=== PATIENT | female | born 1990 | race Caucasian/White ===

== ENCOUNTER 2018-12-31 09:20 | Inpatient (IN) | payer OTHER ==
[2018-12-31] MEDS: LACTATED RINGER'S 1,000 ML IV ×3 (10:53→16:55)
[2018-12-31] MEDS ORDERED: MISOPROSTOL 200 MCG TAB PR ×2 (11:00→17:00)
[2018-12-31] MEDS ORDERED: OXYTOCIN 30 UNITS/LR 500 ML IV ×2 (11:00→17:00)
[2018-12-31] MEDS ORDERED: CARBOPROST 250 MCG INJ IM ×2 (11:00→17:00)
[2018-12-31 11:10] LABS: ADD MAN DIFF? NO
[2018-12-31 11:14] LABS: BASOPHILS % 0.3 % (0.0-2.0); EOSINOPHILS # 0.2 10^3/ul (0.0-0.5); EOSINOPHILS % 2.2 % (0.0-7.0); HEMATOCRIT 37.2 % (37.0-47.0); HEMOGLOBIN 12.2 g/dl (12.0-16.0); LYMPHOCYTES # 1.7 10^3/ul (0.8-2.9); LYMPHOCYTES % 18.3 % (15.0-51.0); MEAN CORPUSCULAR HEMOGLOBIN 30.7 pg (29.0-33.0); MEAN CORPUSCULAR HGB CONC 32.8 g/dl (32.0-37.0); MEAN CORPUSCULAR VOLUME 93.7 fl (82.0-101.0); MEAN PLATELET VOLUME 11.2 fl (7.4-10.4); MONOCYTE # 1.1 10^3/ul (0.3-0.9); MONOCYTES % 12.3 % (0.0-11.0); NEUTROPHIL # 6.2 10^3/ul (1.6-7.5); NEUTROPHILS % 66.3 % (39.0-77.0); PLATELET COUNT 269 10^3/UL (140-415); RED BLOOD COUNT 3.97 10^6/ul (4.20-5.40); RED CELL DISTRIBUTION WIDTH 13.4 % (11.5-14.5)
[2018-12-31 11:14] LABS: WHITE BLOOD COUNT 9.3 10^3/ul (4.8-10.8)
[2018-12-31 11:16] LABS: INR 0.92; PROTIME 12.5 Sec (11.9-14.9)
[2018-12-31 11:30] LABS: GLUCOSE 129 mg/dl (70-220)
[2018-12-31] MEDS ORDERED: CEFAZOLIN 1 GM INJ (15:30)
[2018-12-31] MEDS ORDERED: METHYLERGONOVINE 0.2 MG INJ (15:30)
[2018-12-31] MEDS ORDERED: FENTAnyl 50 MCG/ML VIAL (15:37)
[2018-12-31] MEDS ORDERED: morphine SULFATE/PF (10 MG/10 ML) INJ (15:37)
[2018-12-31] MEDS ORDERED: ONDANSETRON 4 MG INJ (15:48)
[2018-12-31] MEDS ORDERED: DEXAMETHASONE 4 MG/ML 1 ML INJ (15:48)
[2018-12-31] MEDS ORDERED: FAMOTIDINE 20 MG INJ (15:48)
[2018-12-31] MEDS ORDERED: MIDAZOLAM 1 MG/ML 2 ML INJ (16:06)
[2018-12-31] MEDS ORDERED: DIPHENHYDRAMINE 50 MG INJ IV (16:30)
[2018-12-31] MEDS ORDERED: ONDANSETRON 4 MG INJ IV (16:30)
[2018-12-31] MEDS ORDERED: ZOLPIDEM 5 MG TAB PO (16:30)
[2018-12-31] MEDS ORDERED: NALOXONE (0.4 MG/ML) INJ IV (16:30)
[2018-12-31] MEDS ORDERED: HYDROmorphONE 0.5 MG/0.5 ML SYG IV ×2 (16:30)
[2018-12-31 16:31] LABS: AMPHETAMINE/METHAMPHETAMINE NEGATIVE (NEGATIVE); BARBITURATES NEGATIVE (NEGATIVE); BENZODIAZEPINES NEGATIVE (NEGATIVE)
[2018-12-31 16:32] LABS: CANNABINOIDS NEGATIVE (NEGATIVE); COCAINE NEGATIVE (NEGATIVE); OPIATES NEGATIVE (NEGATIVE)
[2018-12-31 16:36] LABS: RAPID PLASMA REAGIN NONREACTIVE (NR)
[2018-12-31] MEDS ORDERED: METHYLERGONOVINE 0.2 MG INJ IM (17:00)
[2018-12-31] MEDS ORDERED: METHYLERGONOVINE 0.2 MG TAB PO (17:00)
[2018-12-31] MEDS: OXYTOCIN 30 UNITS/LR 500 ML IV ×2 (17:03→20:00)
[2018-12-31] MEDS: CEFAZOLIN 2 GM/50 ML (PMX) 50 ML IVPB (17:24)
[2018-12-31] MEDS: METHYLERGONOVINE 0.2 MG INJ IM (17:25)
[2018-12-31] MEDS: KETOROLAC 30 MG INJ IV (19:23)
[2018-12-31] MEDS: LANOLIN HPA 1 PKT TOP (21:39)
[2018-12-31] MEDS: SENNA/DOCUSATE NA (8.6MG/50MG) TAB PO (21:39)
[2019-01-01] MEDS: LACTATED RINGER'S 1,000 ML IV ×2 (06:35→10:53)
[2019-01-01 08:21] LABS: ADD MAN DIFF? NO
[2019-01-01 08:29] LABS: BASOPHILS % 0.3 % (0.0-2.0); EOSINOPHILS % 0.3 % (0.0-7.0); HEMATOCRIT 34.1 % (37.0-47.0); HEMOGLOBIN 11.2 g/dl (12.0-16.0); LYMPHOCYTES % 16.7 % (15.0-51.0); MEAN CORPUSCULAR HEMOGLOBIN 30.7 pg (29.0-33.0); MEAN CORPUSCULAR HGB CONC 32.8 g/dl (32.0-37.0); MEAN CORPUSCULAR VOLUME 93.4 fl (82.0-101.0); MEAN PLATELET VOLUME 10.9 fl (7.4-10.4); MONOCYTE # 1.2 10^3/ul (0.3-0.9); MONOCYTES % 10.3 % (0.0-11.0); NEUTROPHIL # 8.6 10^3/ul (1.6-7.5); PLATELET COUNT 236 10^3/UL (140-415); RED BLOOD COUNT 3.65 10^6/ul (4.20-5.40); RED CELL DISTRIBUTION WIDTH 13.4 % (11.5-14.5)
[2019-01-01 08:29] LABS: WHITE BLOOD COUNT 11.9 10^3/ul (4.8-10.8)
[2019-01-01 09:03] LABS: ANION GAP 7 (5-13); BLOOD UREA NITROGEN 11 mg/dl (7-20); CALCIUM 8.6 mg/dl (8.4-10.2); CARBON DIOXIDE 25 mmol/L (21-31); CHLORIDE 103 mmol/L (97-110); CREATININE 0.57 mg/dl (0.44-1.00); Estimated GFR > 60 mL/min (>60); GLUCOSE 63 mg/dl (70-220); SODIUM 135 mmol/L (135-144)
[2019-01-01 09:19] LABS: POTASSIUM 3.5 mmol/L (3.5-5.1)
[2019-01-01] MEDS: SENNA/DOCUSATE NA (8.6MG/50MG) TAB PO ×2 (09:27→21:48)
[2019-01-01] MEDS: KETOROLAC 30 MG INJ IV (15:16)
[2019-01-02] MEDS: IBUPROFEN 800 MG TAB PO (00:11)
[2019-01-02] MEDS: HYDROCODONE/APAP (5/325) TAB PO ×2 (00:12→11:59)
[2019-01-02] MEDS: SENNA/DOCUSATE NA (8.6MG/50MG) TAB PO (09:00)
[2019-01-03] MEDS: SENNA/DOCUSATE NA (8.6MG/50MG) TAB PO ×2 (00:32→09:37)
[2019-01-03] MEDS: IBUPROFEN 800 MG TAB PO ×3 (00:32→12:37)
[2019-01-03 09:02] LABS: ADD MAN DIFF? NO
[2019-01-03 09:08] LABS: BASOPHILS % 0.2 % (0.0-2.0); EOSINOPHILS # 0.2 10^3/ul (0.0-0.5); EOSINOPHILS % 2.7 % (0.0-7.0); HEMATOCRIT 37.5 % (37.0-47.0); LYMPHOCYTES % 23.2 % (15.0-51.0); MEAN CORPUSCULAR HEMOGLOBIN 30.2 pg (29.0-33.0); MEAN CORPUSCULAR VOLUME 94.5 fl (82.0-101.0); MEAN PLATELET VOLUME 10.9 fl (7.4-10.4); MONOCYTE # 1.1 10^3/ul (0.3-0.9); MONOCYTES % 12.6 % (0.0-11.0); NEUTROPHIL # 5.3 10^3/ul (1.6-7.5); NEUTROPHILS % 60.8 % (39.0-77.0); PLATELET COUNT 288 10^3/UL (140-415); RED BLOOD COUNT 3.97 10^6/ul (4.20-5.40); RED CELL DISTRIBUTION WIDTH 13.8 % (11.5-14.5)
[2019-01-03 09:08] LABS: WHITE BLOOD COUNT 8.8 10^3/ul (4.8-10.8)
[2019-01-03] MEDS: MEASLES,MUMPS,RUBELLA VACCINE INJ SC* (09:36)
[2019-01-03] MEDS: DIPHTH/TET/ACEL PERTUSS (ADULT) 0.5 ML VIAL IM* (09:37)
== END 2019-01-03 15:29 | disposition home or self-care (01) | DRG 785 ==
LOC: L-D 09:20 → PP1 20:12
PROVIDERS: Obstetrics & Gynecology
PROC: 10D00Z1 Extraction of Products of Conception, Low, Open Approach (ICD-10-PCS; principal; 2018-12-31 17:00)
PROC: 0UB70ZZ Excision of Bilateral Fallopian Tubes, Open Approach (ICD-10-PCS; 2018-12-31 17:00)
DX: O34.211 Maternal care for low transverse scar from previous cesarean delivery (principal); O69.1XX0 Labor and delivery complicated by cord around neck, with compression, not applicable or unspecified; Z3A.39 39 weeks gestation of pregnancy; Z37.0 Single live birth; Z30.2 Encounter for sterilization
CPT/HCPCS: 80048; 80307; 82947; 82962; 85025; 85610; 85730; 86592; 86850; 86900; 86901; 88302; 99464